=== PATIENT | female | born 1960 | race Caucasian/White ===

== ENCOUNTER 2019-01-26 17:28 | Emergency (ER) | payer OTHER ==
[2019-01-26] MEDS ORDERED: DIPHTH,PERTUSS(ACELL),TET 0.5 ML DISP.SYRIN IM ONE (17:31)
--- NOTE | 2019-01-26 17:32 | PDOC ---
Rapid Medical Evaluation Time Seen by Provider: 01/26/19 17:30 Medical Evaluation: 01/26/19 17:31 Pt c/o: cut by knife to left 2 nd digit Pt on brief exam: partially missing nailbed to dorsal aspect on left 2nd digit Pt ordered for: tdap Pt to proceed to the ED Discharge Disposition - Diagnosis Finger laceration - Referrals - Patient Instructions - Post Discharge Activity
[2019-01-26 17:35] VITALS: BP 125/67; PULSE 77; TEMP 98; BMI 30.4
--- NOTE | 2019-01-26 17:37 | PDOC ---
History of Present Illness - General Chief Complaint: Laceration Stated Complaint: LACERATION Time Seen by Provider: 01/26/19 17:30 History Source: Patient - History of Present Illness Initial Comments: 01/26/19 17:42 Chief complaint: Laceration Patient is a healthy 58-year-old female who states she cut her left index finger with a knife while cutting food. Patient needs tetanus shot GENERAL/CONSTITUTIONAL: No fever, weakness. dizziness HEAD, EYES, EARS, NOSE AND THROAT: No change in vision. No ear pain or discharge. No sore throat. CARDIOVASCULAR: No chest pain RESPIRATORY: No shortness of breath or cough GASTROINTESTINAL: No pain, nausea, vomiting, diarrhea or constipation GENITOURINARY: No dysuria MUSCULOSKELETAL: No neck or back pain SKIN: No rash, laceration NEUROLOGIC: No headache, vertigo, loss of consciousness, or loss of sensation. GENERAL: The patient is awake, alert, and fully oriented, in no acute distress. HEAD: Normal with no signs of trauma. EYES: Pupils equal, round and reactive to light, sclera anicteric, conjunctiva clear. ENT: pharynx: no erythema, no exudate, uvula midline NECK: supple CHEST: clear, nontender, rr EXTREMITIES: Left index finger with avulsion of the distal left tip involving portion of the nail, minimal bleeding, no deformity, superficial. Able to flex and extend, neurovascular intact. Rest of extremities, normal range of motion, no edema. NEUROLOGICAL: Normal speech, normal gait. SKIN: Warm, Dry Past History - Past Medical History Allergies/Adverse Reactions: Allergies Allergy/AdvReac Type Severity Reaction Status Date / Time No Known Allergies Allergy Verified 01/26/19 17:36 COPD: No - Psycho Social/Smoking Cessation Hx Smoking History: Never smoked *Physical Exam - Vital Signs Last Vital Signs Temp Pulse Resp BP Pulse Ox 98 F 77 18 125/67 99 01/26/19 17:29 01/26/19 17:29 01/26/19 17:29 01/26/19 17:29 01/26/19 17:29 Medical Decision Making - Medical Decision Making 01/26/19 17:50 Healthy 58-year-old female with superficial fingertip skin avulsion including part of the nail, not deep enough to be concerned about bony injury, patient needs tetanus, and wound care. Discussed issues, findings, results, applicable medications and treatments and follow-up. All these were understood and all questions were answered Discharge - Discharge Information Problems reviewed: Yes Clinical Impression/Diagnosis: Avulsion of skin of finger Qualifiers: Encounter type: initial encounter Qualified Code(s): S61.209A - Unspecified open wound of unspecified finger without damage to nail, initial encounter Condition: Stable Disposition: HOME - Admission No - Follow up/Referral - Patient Discharge Instructions Patient Printed Discharge Instructions: Skin Wound Additional Instructions: Clean with soap and water 2-3 times daily, apply bacitracin Have her reevaluated if redness, pus, fever or getting worse Followup with your doctor - Post Discharge Activity
== END 2019-01-26 18:11 | disposition home or self-care (01) ==
LOC: JERFT 17:28
PROC: 3E0234Z Introduction of Serum, Toxoid and Vaccine into Muscle, Percutaneous Approach (ICD-10-PCS; principal; 2019-01-26)
DX: S61.301A Unspecified open wound of left index finger with damage to nail, initial encounter (principal); W26.0XXA Contact with knife, initial encounter; Y93.G1 Activity, food preparation and clean up; Y92.030 Kitchen in apartment as the place of occurrence of the external cause; Y99.8 Other external cause status
CPT/HCPCS: 90715; 99281-25